=== PATIENT | female | born 1990 | race Caucasian/White ===

== ENCOUNTER 2020-07-05 16:57 | Emergency (ER) | payer BC ==
--- NOTE | 2020-07-05 17:20 | TELE ---
HPI Do you have fever,cough or shortness of breath?: Yes - General Reason For Visit: VIRTUAL VISIT Time Seen by Provider: 07/05/20 17:17 History Source: Patient Exam Limitations: Clinical Condition - History of Present Illness Timing/Duration: momentarily Associated Symptoms: reports: denies symptoms 07/05/20 17:17 Patient with no significant past medical history presented to [facility] for COVID testing prior to return to work. 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 Denies fever, cough, shortness of breath. Denies recent travel or sick contact. Denies any other symptoms Past History - Medical History Allergies/Adverse Reactions: Allergies Allergy/AdvReac Type Severity Reaction Status Date / Time amoxicillin Allergy Verified 09/28/14 08:00 lactose AdvReac Verified 09/28/14 08:01 Home Medications: Ambulatory Orders Oxycodone HCl/Acetaminophen [Percocet 5-325 mg Tablet -] 1 - 2 tab PO Q4H PRN #1 2 tablet 09/28/14 - Psycho-Social/Smoking History Smoking History: Never smoked Review of Systems - Review of Systems Able to Perform ROS?: Yes Limited Urdu proficient: No Constitutional: No: Chills, Fever, Malaise HEENTM: Yes: Symptoms Reported, See HPI, Nose Congestion. No: Eye Pain, Blurred Vision, Tearing, Recent change in vision, Double Vision, Cataracts, Ear Pain, Ocular Prothesis, Ear Discharge, Nose Pain, Tinnitus, Nose Bleeding, Hearing Loss, Throat Pain, Throat Swelling, Mouth Pain, Dental Problems, Difficulty Swallowing, Mouth Swelling, Other Respiratory: No: Symptoms reported, See HPI, Cough, Orthopnea, Shortness of Breath, SOB with Exertion, SOB at Rest, Stridor, Wheezing, Productive cough, Hemoptysis, Other Cardiac (ROS): No: Symptoms Reported, See HPI, Chest Pain, Edema, Irregular Heart Rate, Lightheadedness, Palpitations, Syncope, Chest Tightness, Other ABD/GI: No: Symptoms Reported, Nausea, Vomiting Musculoskeletal: No: Symptoms Reported Integumentary: No: Symptoms Reported, Rash Neurological: No: Symptoms reported, Headache, Ataxia All Other Systems: Reviewed and Negative *Physical Exam - Physical Exam General Appearance: Yes: Nourished, Appropriately Dressed. No: Apparent Distress HEENT: positive: Normal ENT Inspection Respiratory/Chest: negative: Respiratory Distress, Accessory Muscle Use Musculoskeletal: positive: Normal Inspection Extremity: positive: Normal Inspection, Normal Range of Motion Integumentary: positive: Normal Color Neurologic: positive: Fully Oriented, Alert, Normal Mood/Affect, Normal Response, Motor Strength 01/30 - Medical Decision Making 07/05/20 17:18 Patient with no significant past medical history presented to [facility] urgent care for COVID testing prior to return to work. 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 Denies fever, cough, shortness of breath. Denies recent travel or sick contact. Denies any other symptoms Patient asymptomatic at this time. Patient in no acute respiratory distress and afebrile. Discussed self quarantine instructions. COVID tests ordered as per patient's request. [facility]. Patient stable for discharge Discharge Diagnosis at time of Disposition: Encounter by telehealth for suspected COVID-19 - Referrals - Patient Instructions Discharge Instructions: [facility] Instructions, [facility] COVID-19 Isolation Protocol - Discharge Disposition: HOME Condition at time of Disposition: Stable
== END 2020-07-05 17:20 | disposition home or self-care (01) ==
LOC: JVIRT 16:57
DX: Z03.818 Encounter for observation for suspected exposure to other biological agents ruled out (principal)
CPT/HCPCS: C9803; Q3014-GT; U0003

== ENCOUNTER 2020-10-23 10:20 | Emergency (ER) | payer BC | END 2020-10-23 12:21 | disposition home or self-care (01) | LOC: JVIRT 10:20 | DX: Z20.822 Contact with and (suspected) exposure to COVID-19 (principal) | CPT/HCPCS: C9803; G2012-GT; U0003 ==